=== PATIENT | female | born 1995 | race Hispanic/Latino ===

== ENCOUNTER 2022-10-10 13:13 | Emergency (ER) | payer SELFPAY ==
[2022-10-10 13:14] VITALS: BP 116/80; PULSE 98; RESP 18; TEMP 36.2; O2SAT 98; BMI 44.2
--- NOTE | 2022-10-10 13:30 | ED.VIS.FEGU ---
HPI HPI - Female History of Present Illness Chief Complaint: Fall Narrative Narrative: 27-year-old female, at approximately 19 weeks gestation presents with spotting/vaginal bleeding that began today. She relates history that she had a mechanical fall down approximately 4 stairs yesterday and hit her right side. She awoke this morning and states that she had vaginal spotting. She denies other injuries. She presents mainly because she wants to make sure that her baby is okay. Of note, she states that she had an [employer] previously, but is a migrant and does not have an S[employer]IOR [employer] SOFTWARE [employer] established here. She has pelvic cramping and vaginal bleeding with . PFSH PFSH Allergy/AdvReac Type Severity Reaction Status Date / Time No Known Allergies Allergy Verified 10/10/22 13:14 Social History Smoking Status: Never smoker ROS ROS ED ROS Narrative Constitutional: No fever, no chills. HEENT: No sore throat. No neck pain. No loss of vision. No rhinorrhea. Cardiovascular: No chest pain. No palpitations. No pedal edema. Respiratory: No cough, no shortness of breath. Abdominal: Positive pelvic cramping/pelvic abdominal pain. No nausea. No vomiting. Genitourinary: No dysuria. No hematuria. Vaginal bleeding/spotting. Musculoskeletal: No myalgias. No arthralgias. Neurologic: No headaches. No dizziness. No lightheadedness. Skin: No rash. No change in color. Psychiatric: No depression. No anxiety. EXAM Physical Exam Narrative Exam Narrative: Pelvic exam andAfebrile. Vital signs noted. HEENT: Normocephalic. Atraumatic. PERRL, EOMI. Neck soft and supple. No point tenderness or step off. Cardiovascular: Regular rate and rhythm. No murmurs, rubs, or gallops appreciated. Respiratory: No tachypnea. Lungs clear to auscultation bilaterally. Gastrointestinal: Abdomen soft, nontender, with normoactive bowel sounds. No rebound or guarding. Difficult to assess secondary to body habitus, questionable gravid uterus. Genitourinary: Patient reveals no blood in the vaginal vault on speculum examination. Os is closed. Neurological: Awake. Alert. Nonfocal, nonlateralizing. Skin: No rash. Normal color. No pallor. Musculoskeletal: No pedal edema. Full range of motion extremities. Const Vital Signs: 10/10/22 13:14 Temperature 97.2 F L Temperature Source Temporal Pulse Rate 98 Respiratory Rate 18 Blood Pressure 116/80 Blood Pressure Mean 92 Pulse Ox 98 Oxygen Delivery Method Room Air MDM MDM MDM Narrative Medical decision making narrative: ABO Rh will be obtained to look for her blood type as she has no prior records in the EMR. I do not feel that a quantitative measurement is indicated. Attempt will be made at heart tones. Transvaginal ultrasound will also be obtained along with CBC to check for anemia. Think this would better assess the heart rate. I reviewed her laboratory work, she has a normal white count of 9.1, hemoglobin slightly anemic at 11.3, hematocrit 34.8, platelet count normal at 240. hCG is elevated at 9641, but she is past 10 weeks. Her blood type is O+. I reviewed her ultrasound results which shows a single live intrauterine on transabdominal ultrasound as this is her second trimester. It has a heart rate of approximately 144 bpm. At this point in time, I discussed patient with Dr. Ean Soto. She is to follow-up with [employer] and call the office tomorrow for an appointment to be seen. I feel she be discharged safely home with follow-up. Although there is no blood in the vaginal vault, given her reported bleeding and pelvic pressure, she will be given the diagnosis of threatened /miscarriage. Disposition is discharged home in stable condition. History & Record Review Discussion w/independent historian: Patient Additional record(s) reviewed:: No prior records Lab Data Attestation: I reviewed the patient's lab results. Labs: Laboratory Results - last 24 hr 10/10/22 10/10/22 10/10/22 13:43 13:43 13:43 WBC 9.1 RBC 3.99 L Hgb 11.3 L Hct 34.8 L MCV 87.2 MCH 28.3 MCHC 32.5 RDW Std Deviation 47.1 H RDW Coeff of Mickie 14.9 H Plt Count 240 MPV 10.3 Immature Gran % (Auto) 0.400 Neut % (Auto) 72.9 H Lymph % (Auto) 19.3 Larue % (Auto) 5.5 Eos % (Auto) 1.7 Baso % (Auto) 0.2 Absolute Neuts (auto) 6.6 Absolute Lymphs (auto) 1.75 Nucleated RBC % 0 HCG, Quant 9641 H Serum , Qual Cancelled Blood Type O POSITIVE Radiography Diagnostic Testing: Clinical Impression(s) from Imaging Studies Obstetrics Ultrasound 10/10/22 14:09 IMPRESSION: Single live intrauterine . Electronically Signed: Mamie Stout MD at 14:57 EDT Reading Location ID and State: [facility] / [place] Tel , Service support , Discharge Plan Triage Chief Complaint: Fall Other Complaint: Vag Bld, Preg ED Provider: John Chow Dx/Rx/DC Orders Clinical Impression: Fall down stairs, Intrauterine , Threatened Instructions: ED Mechanical Fall, ED Possible Miscarriage ..., ED Pelvic Pain Preg UKO 2 or 3 Tri Primary Care Provider: Care Physician,No Primary Referrals: Dee Kaiser MD [Med Staff - Active Staff] - As soon as possible NOT,DEFINED [Non-Staff] - Activity Restrictions/Additional Instructions: Return with increased bleeding, new or worsening symptoms. Call the [employer] tomorrow for an appointment. Disposition Disposition: Home, Self Care
[2022-10-10 13:50] LABS: Absolute Lymphocyte Count 1.75 X10^3/uL (0.83-4.51); Absolute Neutrophil Count 6.6 X10^3/uL (2.0-7.7); Basophil# 0.02 X10^3/uL; Basophil% 0.2 % (0-1); Eosinophil# 0.15 X10^3/uL; Eosinophils% 1.7 % (0-5); Hematocrit 34.8 % (37-47); Hemoglobin 11.3 g/dL (12.0-15.0); Lymphocyte # 1.75 X10^3/ul (0.83-4.51); Lymphocyte % 19.3 % (19-41); Mean Corp Hgb Conc 32.5 g/dL (32-36); Mean Corpuscular Hgb 28.3 pg (27.0-32.0); Mean Corpuscular Volume 87.2 fL (81-99); Mean Platelet Vol. 10.3 fl (6.2-12.0); Monocyte% 5.5 % (0-10); NRBC Flagged by Analyzer 0 % (0-5); Neutrophil # 6.61 X10^3/uL (2.7-7.7); Neutrophil % 72.9 % (47-70); Platelet Count 240 K/mm3 (150-450); RBC Distribution Width CV 14.9 % (11.6-14.6); RBC Distribution Width SD 47.1 fl (35.1-43.9); Red Blood Count 3.99 M/mm3 (4.2-5.4); White Blood Count 9.1 K/mm3 (4.4-11.0)
--- NOTE | 2022-10-10 14:09 | US_ITS ---
STUDY: SECOND AND THIRD TRIMESTER OBSTETRICAL ULTRASOUND - LIMITED REASON FOR EXAM: Female, 27 years old BLEEDING, S/P FALL evaluate OF FHR AND PLACENTA D/T GA PRIOR ULTRASOUND: None. TECHNIQUE: Transabdominal TECHNICAL QUALITY: Adequate. FINDINGS: There is a single intrauterine fetus. The fetus is in a cephalic presentation. There is demonstrated cardiac activity with a heart rate of 144 bpm. There is a normal amniotic fluid volume. The placenta is left lateral in location and is not low lying. The cervix measures 3.7 cm in length. IMPRESSION: Single live intrauterine . Electronically Signed: Mamie Stout MD at 14:57 EDT , STUDY: SECOND AND THIRD TRIMESTER OBSTETRICAL ULTRASOUND - LIMITED REASON FOR EXAM: Female, 27 years old BLEEDING, S/P FALL evaluate OF FHR AND PLACENTA D/T GA PRIOR ULTRASOUND: None. TECHNIQUE: Transabdominal TECHNICAL QUALITY: Adequate. FINDINGS: There is a single intrauterine fetus. The fetus is in a cephalic presentation. There is demonstrated cardiac activity with a heart rate of 144 bpm. There is a normal amniotic fluid volume. The placenta is left lateral in location and is not low lying. The cervix measures 3.7 cm in length. US/OB Limited (No Biometrics)
[2022-10-10 14:23] LABS: hCG Titer Quant., Serum 9641 mIU/mL (1-3)
== END 2022-10-10 15:46 | disposition home or self-care (01) ==
PROVIDERS: Emergency Provider Emergency Medicine; Visit Provider Emergency Medicine
DX: O20.0 Threatened abortion (principal); W10.9XXA Fall (on) (from) unspecified stairs and steps, initial encounter; Z3A.19 19 weeks gestation of pregnancy
CPT/HCPCS: 76815; 76817; 84702; 85025; 86900; 86901; 99283; A4216